=== PATIENT | male | born 1935 ===

== ENCOUNTER 2018-10-02 08:43 | Outpatient (CLI) | payer OTHER ==
[~2018-10-02 08:43] MED LIST: GLUCOPHAGE XR500 MG; ZESTRIL40 M1
== END 2018-10-02 08:45 | disposition home or self-care (01) ==
LOC: SONOGRAMA 08:43
DX: E04.2 Nontoxic multinodular goiter (principal)

== ENCOUNTER → 2020-07-20 | Outpatient (CLI) | payer OTHER | END | disposition home or self-care (01) | LOC: PPH VACUNA | PROVIDERS: ATTEND Emergency Medicine Pediatric Emergency Medicine | DX: Z23 Encounter for immunization (principal) ==